=== PATIENT | male | born 2005 | race Caucasian/White ===

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

== ENCOUNTER 2024-04-24 01:48 | Outpatient (CLI) | payer BC, SELFPAY ==
[2024-04-24 10:37] LABS: Calculated LDL 114 mg/dL (<100); Cholesterol 169 mg/dL (<200); HDL Cholesterol 43 mg/dL (40-60); Triglyceride 64 mg/dL (<150)
== END 2024-04-24 01:49 | disposition home or self-care (01) ==
LOC: LBO 01:49
PROVIDERS: PCP Nurse Practitioner Family; Visit Provider Nurse Practitioner Family
DX: Z13.220 Encounter for screening for lipoid disorders (principal)
CPT/HCPCS: 36415; 80061

== ENCOUNTER 2024-12-30 09:40 | Outpatient (CLI) | payer BC, SELFPAY ==
[2024-12-30 09:31] LABS: HCT 41.6 % (40.0-50.0); HGB 14.2 g/dL (13.5-17.5); MCH 28.3 pg (27.0-33.0); MCHC 34.1 % (32.0-36.0); MCV 83 fL (80-95); MPV 9.7 fL (8.0-11.0); Platelet Count 212 10^3/uL (130-400); RBC 5.02 10^6/uL (4.36-5.78); RDW 13.1 % (11.8-14.1); RDW-SD 39.5 fL; WBC 19.13 10^3/uL (4.4-10.8)
[2024-12-30 10:28] LABS: ALT 20 U/L (16-63); AST 16 U/L (15-37); Albumin 4.2 g/dL (3.4-5.0); Alkaline Phosphatase 76 U/L (46-116); BUN 9 mg/dL (7-18); Bilirubin, Total 0.9 mg/dL (0.2-1.0); CREATININE 0.8 mg/dL (0.70-1.30); Calcium 9.2 mg/dL (8.5-10.1); Chloride 101 mmol/L (98-107); Estimated GFR 129.13 (mL/min/1.73m2); Glucose 93 mg/dL (74-106); Potassium 4.3 mmol/L (3.5-5.1); Sodium 139 mmol/L (136-145); Total Protein 8.1 g/dL (6.4-8.2)
[2024-12-30 13:19] LABS: Lab Add On Test DONE
[2024-12-30 13:25] LABS: Abs Immature Grans 0.08 10^3/uL (0.0-0.06); Absolute Basophil Count 0.06 10^3/uL (0.0-0.2); Absolute Eosinophil Count 0.04 10^3/uL (0.0-0.7); Absolute Monocyte Count 1.68 10^3/uL (0.1-0.8); Absolute Neutrophil Count 15.14 10^3/uL (1.2-6.7); Basophils % 0.3 %; Eosinophils % 0.2 %; Immature Grans % 0.4 %; Lymphocytes % 8.6 %; Neutrophils % 81.5 %
[2024-12-30 13:40] LABS: Diff Comment Diff Reviewed; RBC Morphology Normal
== END 2024-12-30 09:41 | disposition home or self-care (01) ==
LOC: LBO 09:40
PROVIDERS: PCP Nurse Practitioner Family; Visit Provider Nurse Practitioner Family
DX: R68.89 Other general symptoms and signs (principal); J02.9 Acute pharyngitis, unspecified; R68.83 Chills (without fever)
CPT/HCPCS: 36415; 80053; 85027; 85007